=== PATIENT | male | born 1960 | race Caucasian/White ===

== ENCOUNTER 2022-05-17 14:10 | Emergency (ER) | payer OTHER ==
[~2022-05-17] VITALS: Ht 180.3 cm; Wt 83.2 kg
[2022-05-17] MEDS ORDERED: BOOSTRIX/ADACEL VACCINE (DIPHTH/PERTUSS/ACELL/TETANUS) 0.5ML SYR IM.IMMUN ONE (16:20)
[2022-05-17] MEDS ORDERED: NEOSPORIN OINT 0.9 GM PKT TOP ONE (16:20)
[2022-05-17] MEDS ORDERED: ACETAMINOPHEN TAB 650MG DOSE (2X325MG) PO ONE (16:30)
[2022-05-17] MEDS ORDERED: CEPH500C PO (16:48)
[2022-05-17] MEDS ORDERED: BACI500O8 TOP (16:48)
[2022-05-17 16:59] VITALS: BP 152/80
== END 2022-05-17 17:01 | disposition home or self-care (01) ==
LOC: M ED 14:10
DX: S61.217A Laceration without foreign body of left little finger without damage to nail, initial encounter (principal); W27.8XXA Contact with other nonpowered hand tool, initial encounter; Y92.019 Unspecified place in single-family (private) house as the place of occurrence of the external cause; Z23 Encounter for immunization